=== PATIENT | male | born 1985 | race African-American/Black ===

== ENCOUNTER 2021-04-01 20:06 | Emergency (ER) | payer OTHER ==
[~2021-04-01] VITALS: Ht 157.5 cm; Wt 90.7 kg
[2021-04-01 20:52] LABS: PLATELET COUNT 391 K/uL (142-355)
[2021-04-01 20:56] LABS: POTASSIUM 3.6 mmol/L (3.6-5.2)
[2021-04-01 21:31] LABS: PARTIAL THROMBOPLASTIN TIME 21.8 SECONDS (24.5-33.6)
[2021-04-02 00:15] VITALS: BP 114/74
== END 2021-04-02 00:15 | disposition home or self-care (01) ==
LOC: ED 20:06
PROVIDERS: Hospitalist
PROC: 0RSMXZZ Reposition Left Elbow Joint, External Approach (ICD-10-PCS; principal; 2021-04-01)
DX: S53.115A Anterior dislocation of left ulnohumeral joint, initial encounter (principal); F10.20 Alcohol dependence, uncomplicated; Y90.6 Blood alcohol level of 120-199 mg/100 ml; Y04.2XXA Assault by strike against or bumped into by another person, initial encounter; Y93.01 Activity, walking, marching and hiking; Y92.524 Gas station as the place of occurrence of the external cause
CPT/HCPCS: 36415; 80048; 80320; 85027; 85610; 85730; 96365; 96366; 96375; 99284; J0690; J1885; J2270; J2405; J3411; J3475; J3490